=== PATIENT | female | born 1935 | race Caucasian/White ===

== ENCOUNTER → 2016-10-20 | Outpatient (CLI) | payer OTHER, BC ==
[~2016-10-20] MED LIST: AMLO5CAP3 PO; ASPI-232 PO; FRS/40 PO; GLIP-197 PO; INSUINJ4 SQ; LIRA18IN SQ; METF500T5 PO; OMEG1CAP26 PO; SIMV40TA2 PO
[2016-10-20 12:15] LABS: BASO % 0.7 %; BASO ABS # 0.06 K/uL (0-0.2); COMPLETE YES; EOS % 5.9 %; HEMATOCRIT 40.6 % (37-47); IG% 0.4 %; LYMPH % 15.6 %; MEAN CELL VOLUME 90.4 fL (80-100); MEAN CORPUSCULAR HEMOGLOBIN 29.2 pg (25-34); MEAN CORPUSCULAR HGB CONC 32.3 g/dl (32-36); MEAN PLATELET VOLUME 10.1 fL (7.4-10.4); MONO % 7.3 %; NEUT % 70.1 %; PLATELET COUNT 403 K/uL (130-400); RED BLOOD COUNT 4.49 M/uL (4.2-5.4); WHITE BLOOD COUNT 8.35 K/uL (4.8-10.8)
[2016-10-20 12:26] LABS: ESTIMATED AVERAGE GLUCOSE 177 mg/dl; HA1C FLAG Normal (Normal)
[2016-10-20 13:55] LABS: BLOOD UREA NITROGEN 17 mg/dl (7-18); BUN/CREATININE RATIO 24.8 (10-20); CALCIUM 9.1 mg/dl (8.5-10.1); CARBON DIOXIDE 28 mmol/L (21-32); CHLORIDE 105 mmol/L (98-107); CREATININE 0.69 mg/dl (0.60-1.20); GLUCOSE 149 mg/dl (70-99); SODIUM 142 mmol/L (136-145)
[2016-10-20 13:58] LABS: ALKALINE PHOSPHATASE 91 U/L (45-117); ALT/SGPT 14 U/L (12-78); AST/SGOT 10 U/L (15-37); CHOLESTEROL 145 mg/dl (0-200); CHOLESTEROL/HDL RATIO 1.9; HDL CHOLESTEROL 75 mg/dl; LDL CHOLESTEROL CALCULATED 42 mg/dl; TRIGLYCERIDES 138 mg/dl (0-150); VERY LOW DENSITY LIPOPROT CALC 28 mg/dl
== END | disposition home or self-care (01) ==
LOC: C.LAB1850 11:21
PROVIDERS: ATTEND Internal Medicine
DX: E11.9 Type 2 diabetes mellitus without complications (principal); E78.5 Hyperlipidemia, unspecified; D64.9 Anemia, unspecified

== ENCOUNTER → 2017-01-07 | Outpatient (CLI) | payer OTHER, BC ==
--- NOTE | 2017-01-10 12:25 | MAMMOGRAPHY REPORT ---
UNILATERAL RIGHT DIGITAL SCREENING MAMMOGRAM TOMOSYNTHESIS WITH CAD: 01/07/2017 CLINICAL HISTORY: Asymptomatic. Personal history of breast cancer. TECHNIQUE: Breast tomosynthesis in addition to standard 2D mammography was performed. Current study was also evaluated with a Computer Aided Detection (CAD) system. Right CC and MLO 2-D and tomosynt hesis images were obtained. COMPARISON: Comparison is made to exams dated: 01/05/2016 mammogram, 10/16/2014 mammogram, 10/02/2013 m ammogram, and 09/25/2012 mammogram - [facility]. BREAST COMPOSITION: There are scattered areas of fibroglandular density in the right breast. FINDINGS: There are grouped calcifications in the right 6:00 breast posteriorly, which may be incre ased compared compared to prior exams. Recommend spot magnification views for further evaluation. The remainder of the right breast is stable compared to prior exams, without suspicious masses, calc ifications, or areas of architectural distortion noted. Right breast asymmetries are stable, includ ing 2 adjacent asymmetries within the right medial posterior breast which are stable dating back to at least the 2010 and 2012 exams. Other scattered benign-appearing calcifications are stable. Ther e are stable postsurgical changes from reduction mammoplasty. IMPRESSION: ACR BI-RADS CATEGORY 0: INCOMPLETE EVALUATION: NEED ADDITIONAL IMAGING EVALUATION Right 6:00 breast calcifications, for which additional imaging evaluation is recommended. The patie nt will be called to schedule an appointment. Approximately 10% of breast cancers are not detected with mammography. A negative mammographic repor t should not delay biopsy if a clinically suggestive mass is present. Gisele Michel M.D. ah/:01/07/2017 16:48:29 Chief Nurse: Franny CESPEDES(R)(M), [facility] letter sent: Addl Imaging 0 BI-RADS Code: ACR BI-RADS Category 0: Incomplete Evaluation: Need Additional Imaging Evaluation
== END | disposition home or self-care (01) ==
LOC: C.MAMM 11:09
PROVIDERS: ATTEND Internal Medicine
DX: Z12.31 Encounter for screening mammogram for malignant neoplasm of breast (principal); R92.1 Mammographic calcification found on diagnostic imaging of breast; Z90.12 Acquired absence of left breast and nipple

== ENCOUNTER → 2017-01-25 | Outpatient (CLI) | payer OTHER, BC ==
[2017-01-25 12:27] LABS: BASO % 0.7 %; BASO ABS # 0.05 K/uL (0-0.2); COMPLETE YES; EOS % 7.6 %; IG% 0.3 %; LYMPH % 14.1 %; LYMPH ABS # 1.07 K/uL (1.2-3.4); MEAN CELL VOLUME 90.9 fL (80-100); MEAN CORPUSCULAR HEMOGLOBIN 29.1 pg (25-34); MEAN CORPUSCULAR HGB CONC 32.1 g/dl (32-36); MEAN PLATELET VOLUME 10.4 fL (7.4-10.4); MONO % 7.4 %; NEUT % 69.9 %; PLATELET COUNT 367 K/uL (130-400); RED BLOOD COUNT 4.29 M/uL (4.2-5.4); WHITE BLOOD COUNT 7.59 K/uL (4.8-10.8)
[2017-01-25 13:00] LABS: ALT/SGPT 13 U/L (12-78); AST/SGOT 11 U/L (15-37); BLOOD UREA NITROGEN 14 mg/dl (7-18); CALCIUM 8.5 mg/dl (8.5-10.1); CARBON DIOXIDE 32 mmol/L (21-32); CHLORIDE 108 mmol/L (98-107); CREATININE 0.61 mg/dl (0.60-1.20); GLUCOSE 98 mg/dl (70-99); POTASSIUM 3.7 mmol/L (3.5-5.1); SODIUM 145 mmol/L (136-145)
[2017-01-25 13:23] LABS: ALB/GLOB RATIO 0.9 (0.9-2); ALKALINE PHOSPHATASE 82 U/L (45-117); FERRITIN 31.9 ng/ml (8.0-388.0); TOTAL IRON BINDING CAPACITY 280 mcg/dl (250-450)
--- NOTE | 2017-02-01 09:04 | CODING QUERY MEDICAL NECESSITY ---
SUPPORTING DIAGNOSIS NEEDED Quinton MENCHACA, A supporting diagnosis is required for the test/procedure performed on this patient in order for us to be reimbursed by the patient's insurance. Please provide a supporting diagnosis for the following test/procedure listed below next to the test name along with your signature. *If there is no additional diagnosis for this patient that would support the following test/procedure please document that below next to the test/procedure. Test(s)/Procedure(s) that require a supporting diagnosis: * ([id number]) B12 VITAMIN LEVEL DIAGNOSIS: DATE OF SERVICE: 01/25/17 Provider Signature: Date: Thank you Fausto Cho [facility] Information Management Once completed, please kindly fax back to [phone] For questions please call [phone]
== END | disposition home or self-care (01) ==
LOC: C.LAB1850 10:29
PROVIDERS: ATTEND Nurse Practitioner Family
DX: D50.9 Iron deficiency anemia, unspecified (principal)

== ENCOUNTER → 2017-02-03 | Outpatient (CLI) | payer OTHER, BC ==
--- NOTE | 2017-02-03 14:08 | MAMMOGRAPHY REPORT ---
UNILATERAL RIGHT DIGITAL DIAGNOSTIC MAMMOGRAM: 02/03/2017 CLINICAL HISTORY: Callback from screening mammogram for right breast calcifications. TECHNIQUE: Spot magnification right cc and ML views were obtained. COMPARISON: Comparison is made to exams dated: 01/07/2017 mammogram, 01/05/2016 mammogram, 10/16/2014 m ammogram, 10/02/2013 mammogram, 09/25/2012 mammogram - [facility], and 03/30/2010 [facility] mogram. BREAST COMPOSITION: There are scattered areas of fibroglandular density in the right breast. FINDINGS: Spot magnification views of the right breast demonstrate a focal 8 mm group of calcificat ions in the right 6:00 breast posteriorly. Some of the calcifications are round and coarse while ot hers are smaller and more punctate. The calcifications appear increased compared to prior exams inc luding the 2014 exam. Given the heterogeneity in morphology and given the increase, the calcificati ons are indeterminate and stereotactic biopsy is recommended for further evaluation. IMPRESSION: ACR BI-RADS CATEGORY 4: SUSPICIOUS Grouped calcifications in the right 6:00 breast posteriorly are indeterminate and stereotactic biops y is recommended for further evaluation. A phone call was made to the physician's office to confirm faxed results were received. The patient has been verbally notified of the results. She tentatively scheduled the biopsy before leaving the department. Approximately 10% of breast cancers are not detected with mammography. A negative mammographic repor t should not delay biopsy if a clinically suggestive mass is present. Gisele Michel M.D. ah/:02/03/2017 11:48:46 Processing Inspector: Laury CESPEDES(R)(M), [facility] letter sent: Abnormal 4/5 BI-RADS Code: ACR BI-RADS Category 4: Suspicious
== END | disposition home or self-care (01) ==
LOC: C.MAMM 11:19
PROVIDERS: ATTEND Internal Medicine
DX: R92.1 Mammographic calcification found on diagnostic imaging of breast (principal)

== ENCOUNTER → 2017-02-09 | Outpatient (CLI) | payer OTHER, BC ==
--- NOTE | 2017-02-09 13:37 | Discharge Instructions ---
Discharge Instructions Procedure Procedure Date: February 09, 2017. Reason for visit: Rt Calcifications, Lt Mastectomy. Discharge Discharge Date: February 09, 2017. Discharge Diagnosis: post right breast stereotactic guided biopsy Instructions Activity Recommendations: Additional Limitations (see below) Return to School/Work: no limitations Recommended Home Diet: No Limitations Provider Instructions: ACTIVITY RECOMMENDATIONS: * No lifting, pushing, pulling or exercising the affected side for three days. RETURN TO SCHOOL/WORK: * You may return to work/school after the procedure, but do not perform any strenuous activities for 24 to 48 hours. MEDICATIONS: * Tylenol (two 325 mg) every four to six hours if needed for mild pain (if not allergic to Tylenol). DIET: * Resume previous diet. SPECIAL CARE INSTRUCTIONS: * Keep biopsy site dry for 24 hours. May shower after 24 hours, but do not soak (bathe) incision. * May remove Tegaderm (plastic patch) tomorrow AFTER showering. * Leave the steri-strips on for one week. Allow the steri-strips to fall off by themselves. If not off after one week, you may remove them. You may place a Bandaid crosswise over the strips, if desired. * Apply ice 10 minutes on and 10 minutes off as needed. * Wear a bra at bedtime to sleep more comfortably for 2-3 days. * Your referring physician should have the results after approximately 5 to 7 business days. * Call for unusual bleeding, fever, drainage, etc or if you have any questions call [phone] during normal business hours or after hours call Dr Harrell, . FOLLOW UP VISIT: Follow-up with Referring Physician as scheduled. Allergies Coded Allergies: Aspartame (Verified Allergy, Severe, immediate diarrhea, 05/05/15) Codeine (Verified Allergy, Severe, hallucinations, 05/05/15) Pratik Ndiaye Recommendations: Call your doctor if: * Temperature above 101 degrees * Pain not relieved by pain medicine ordered * There is increased drainage or redness from any incision * You have any unanswered questions or concerns. Your Doctors Instructions noted above were prepared by provider Laura Harrell. Patient Signature Section: Patient Instructions Signature Page Sona Veras Patient (or Guardian) Signature/Date: I have read and understand the instructions given to me by my caregivers. Caregiver/RN/Doctor Signature/Date: The above-named patient and/or guardian has received patient instructions on this date. + Original Patient Signature Page (only) stays with chart. Please make copy for patient.
--- NOTE | 2017-02-09 14:11 | MAMMOGRAPHY REPORT ---
UNILATERAL RIGHT DIGITAL DIAGNOSTIC MAMMOGRAM: 02/09/2017 CLINICAL HISTORY: Status post right breast stereotactic guided biopsy of a cluster of heterogeneous microcalcifications in the posterior 6:00 axis. Please refer to the report from right breast stereotactic guided biopsy performed at the same time f or full detail. IMPRESSION: POST PROCEDURE IMAGING FOR MARKER PLACEMENT Please refer to the report from right breast stereotactic guided biopsy performed at the same time f or full detail. Approximately 10% of breast cancers are not detected with mammography. A negative mammographic repor t should not delay biopsy if a clinically suggestive mass is present. Laura Harrell M.D. ay/:02/09/2017 13:38:56 Chief School Finance Officer: Edwardo CESPEDES(Brina)(M), [facility] BI-RADS Code: Post Procedure Imaging For Marker Placement
--- NOTE | 2017-02-09 15:47 | MAMMOGRAPHY REPORT ---
STEREOTACTIC GUIDED BIOPSY RIGHT BREAST: 02/09/2017 CLINICAL HISTORY: Clustered coarse heterogeneous microcalcifications and associated asymmetry in the 6:00 right breast posteriorly. Patient presents for stereotactic biopsy. Personal history of shanta te left breast cancer status post mastectomy. COMPARISON: Comparison is made to exams dated: 02/03/2017 mammogram, 01/07/2017 mammogram, 01/05/2016 mammogram, and 10/16/2014 mammogram - [facility]. PATIENT CONSENT: After explaining the risks, benefits and alternatives of the procedure to the patie nt, informed consent was obtained both verbally and in writing. Specific risks include: Bleeding, i nfection, puncture of adjacent structure, pain, nontarget biopsy, sampling error, metal allergy and medication reaction. PROCEDURE DESCRIPTION: A time-out was performed and the right breast was confirmed as the site of bi opsy. The patient was placed prone on the stereotactic biopsy table and the breast was placed in CC from below compression. A aluminum fabrication supervisor image was obtained that demonstrated the clustered microcalcificatio ns in question. They are amenable to sterotactic biopsy. Then +15 and -15 stereo pair images were obtained. The calcifications were targeted utilizing the coordinates obtained by the computer. The skin was prepped with Betadine. 1% Lidocaine with and without epinipherine was administered as loca l anesthesia. A small skin incision was made. Through the incision, the needle was inserted to the depth determined by the computer. 7 samples were obtained using a [employer]iva 9-gauge vacuum-assiste d biopsy device. The specimen radiograph demonstrated several abrasives sales representative microcalcifications, th erefore, a metallic marker was placed at the biopsy site. There was no immediate complication. Hemos tasis was achieved after several minutes of manual compression. The samples were sent to pathology in two appropriately labeled containers, "with calcifications" and "without calcifications". All of the samples were obtained from the same single biopsy site. Postprocedure CC and ML views of the right breast were obtained. There is a new metallic biopsy ma rker and minimal wispy hematoma at the site of the biopsy in the 6:00 posterior right breast. IMPRESSION: STEREOTACTIC GUIDED BIOPSY Status post stereotactic guided biopsy of an indeterminate clustered micro-calcifications in the 6:0 0 posterior breast, with biopsy marker placed at the site. The patient will receive notification of the biopsy results from her referring physician. Laura lawson/:02/09/2017 15:36:16 Abrasive Coating Machine Operator: Edwardo WAGNER)(M), [facility]
== END | disposition home or self-care (01) ==
LOC: C.MAMM 12:34
PROVIDERS: ATTEND Internal Medicine
DX: R92.0 Mammographic microcalcification found on diagnostic imaging of breast (principal)

== ENCOUNTER → 2017-05-02 | Outpatient (CLI) | payer OTHER, BC ==
[2017-05-02 11:15] LABS: ESTIMATED AVERAGE GLUCOSE 154 mg/dl; HA1C FLAG Normal (Normal)
== END | disposition home or self-care (01) ==
LOC: C.LAB1850 09:35
PROVIDERS: ATTEND Physician Assistant
DX: E11.9 Type 2 diabetes mellitus without complications (principal)

== ENCOUNTER → 2017-05-26 | Outpatient (CLI) | payer OTHER, BC ==
[2017-05-26 12:18] LABS: BASO % 0.4 %; BASO ABS # 0.03 K/uL (0-0.2); COMPLETE YES; EOS % 8.3 %; HEMATOCRIT 38.8 % (37-47); IG% 0.4 %; LYMPH % 17.5 %; LYMPH ABS # 1.31 K/uL (1.2-3.4); MEAN CORPUSCULAR HEMOGLOBIN 28.5 pg (25-34); MEAN CORPUSCULAR HGB CONC 31.7 g/dl (32-36); MEAN PLATELET VOLUME 10.3 fL (7.4-10.4); MONO % 7.4 %; PLATELET COUNT 401 K/uL (130-400); RED BLOOD COUNT 4.31 M/uL (4.2-5.4); WHITE BLOOD COUNT 7.47 K/uL (4.8-10.8)
[2017-05-26 12:36] LABS: ALT/SGPT 14 U/L (12-78); AST/SGOT 12 U/L (15-37); BLOOD UREA NITROGEN 21 mg/dl (7-18); BUN/CREATININE RATIO 31.5 (10-20); CALCIUM 8.9 mg/dl (8.5-10.1); CARBON DIOXIDE 30 mmol/L (21-32); CHLORIDE 104 mmol/L (98-107); CREATININE 0.67 mg/dl (0.60-1.20); GLUCOSE 117 mg/dl (70-99); POTASSIUM 3.8 mmol/L (3.5-5.1); SODIUM 139 mmol/L (136-145)
[2017-05-26 12:39] LABS: ALB/GLOB RATIO 0.9 (0.9-2); ALKALINE PHOSPHATASE 95 U/L (45-117); FERRITIN 19.2 ng/ml (8.0-388.0); TOTAL IRON BINDING CAPACITY 311 mcg/dl (250-450)
== END | disposition home or self-care (01) ==
LOC: C.LAB1850 10:51
PROVIDERS: ATTEND Nurse Practitioner Family
DX: D50.9 Iron deficiency anemia, unspecified (principal)

== ENCOUNTER → 2017-08-16 | Outpatient (CLI) | payer OTHER, BC ==
[2017-08-16 13:32] LABS: BASO % 0.7 %; BASO ABS # 0.06 K/uL (0-0.2); COMPLETE YES; HEMATOCRIT 40.8 % (37-47); IG% 0.2 %; LYMPH % 15.3 %; LYMPH ABS # 1.27 K/uL (1.2-3.4); MEAN CELL VOLUME 90.9 fL (80-100); MEAN CORPUSCULAR HGB CONC 31.9 g/dl (32-36); NEUT % 69.8 %; PLATELET COUNT 355 K/uL (130-400); RED BLOOD COUNT 4.49 M/uL (4.2-5.4); WHITE BLOOD COUNT 8.29 K/uL (4.8-10.8)
[2017-08-16 13:44] LABS: ESTIMATED AVERAGE GLUCOSE 151 mg/dl; HA1C FLAG Normal (Normal)
[2017-08-16 13:46] LABS: ALT/SGPT 15 U/L (12-78); BLOOD UREA NITROGEN 21 mg/dl (7-18); BUN/CREATININE RATIO 28.7 (10-20); CALCIUM 8.7 mg/dl (8.5-10.1); CARBON DIOXIDE 28 mmol/L (21-32); CHLORIDE 105 mmol/L (98-107); CREATININE 0.73 mg/dl (0.60-1.20); GLUCOSE 85 mg/dl (70-99); POTASSIUM 3.5 mmol/L (3.5-5.1); SODIUM 140 mmol/L (136-145)
[2017-08-16 13:55] LABS: ALB/GLOB RATIO 0.9 (0.9-2); ALKALINE PHOSPHATASE 84 U/L (45-117); AST/SGOT 13 U/L (15-37); FERRITIN 128.9 ng/ml (8.0-388.0); TOTAL IRON BINDING CAPACITY 303 mcg/dl (250-450)
== END | disposition home or self-care (01) ==
LOC: C.LAB1850 12:11
PROVIDERS: ATTEND Nurse Practitioner Family
DX: E11.9 Type 2 diabetes mellitus without complications (principal); D50.9 Iron deficiency anemia, unspecified

== ENCOUNTER → 2017-12-13 | Outpatient (CLI) | payer OTHER, BC ==
[2017-12-13 12:09] LABS: BASO % 0.5 %; BASO ABS # 0.05 K/uL (0-0.2); EOS % 6.3 %; EOS ABS # 0.58 K/uL (0-0.5); HEMATOCRIT 39.4 % (37-47); HEMOGLOBIN 12.5 g/dL (12.0-16.0); IG# 0.04 K/uL (0.00-0.02); LYMPH % 11.6 %; LYMPH ABS # 1.07 K/uL (1.2-3.4); MEAN CELL VOLUME 89.5 fL (80-100); MEAN CORPUSCULAR HEMOGLOBIN 28.4 pg (25-34); MEAN CORPUSCULAR HGB CONC 31.7 g/dl (32-36); MONO % 9.6 %; MONO ABS # 0.88 K/uL (0.11-0.59); NEUT % 71.6 %; NEUT ABS # 6.57 K/uL (1.4-6.5); PLATELET COUNT 397 K/uL (130-400); RED CELL DISTRIBUTION WIDTH CV 13.6 % (11.5-14.5); RED CELL DISTRIBUTION WIDTH SD 44.9 fL (36.4-46.3); WHITE BLOOD COUNT 9.19 K/uL (4.8-10.8)
[2017-12-13 12:39] LABS: ALBUMIN 2.8 gm/dl (3.4-5.0); ALT/SGPT 14 U/L (12-78); AST/SGOT 12 U/L (15-37); BLOOD UREA NITROGEN 17 mg/dl (7-18); CALCIUM 8.3 mg/dl (8.5-10.1); CARBON DIOXIDE 29 mmol/L (21-32); CREATININE 0.72 mg/dl (0.60-1.20); GLUCOSE 100 mg/dl (70-99); POTASSIUM 3.4 mmol/L (3.5-5.1); SODIUM 138 mmol/L (136-145)
[2017-12-13 12:44] LABS: ALKALINE PHOSPHATASE 108 U/L (45-117); TOTAL PROTEIN 6.2 gm/dl (6.4-8.2)
== END | disposition home or self-care (01) ==
LOC: C.LAB1850 10:47
PROVIDERS: ATTEND Internal Medicine Hematology & Oncology
DX: D50.9 Iron deficiency anemia, unspecified (principal)

== ENCOUNTER → 2018-01-10 | Outpatient (CLI) | payer OTHER, BC ==
--- NOTE | 2018-01-10 15:22 | MAMMOGRAPHY REPORT ---
UNILATERAL RIGHT DIGITAL SCREENING MAMMOGRAM TOMOSYNTHESIS WITH CAD: 01/10/2018 CLINICAL HISTORY: Asymptomatic. Personal history of breast cancer. TECHNIQUE: Right breast tomosynthesis in addition to standard 2D mammography was performed. An addit ional exaggerated medial right CC 2D and tomosynthesis view was obtained to include more medial and p osterior tissue. Current study was also evaluated with a Computer Aided Detection (CAD) system. COMPARISON: Comparison is made to exams dated: 02/09/2017 mammogram, 02/09/2017 stereotactic biopsy, mammogram, 01/07/2017 mammogram, 01/05/2016 mammogram, and 10/16/2014 mammogram - [facility]. BREAST COMPOSITION: There are scattered areas of fibroglandular density in the right breast. FINDINGS: There is a stable metallic biopsy marker clip in the 6:00 posterior right breast, denoting the site of prior benign stereotactic biopsy which yielded a fibroadenoma. There are a few residual grouped microcalcifications at the biopsy site and stable nodular asymmetry slightly anterior to the biopsy clip. No new suspicious mass, architectural distortion or cluster of microcalcifications is s een. IMPRESSION: ACR BI-RADS CATEGORY 1: NEGATIVE There is no mammographic evidence of malignancy. A 1 year screening mammogram is recommended. The pa tient will receive written notification of the results. Approximately 10% of breast cancers are not detected with mammography. A negative mammographic report should not delay biopsy if a clinically suggestive mass is present. Laura Harrell M.D. ay/:01/10/2018 14:57:55 Manager Shell: Fernanda CESPEDES(Brina)([place]), [facility] letter sent: Normal 1/2 BI-RADS Code: ACR BI-RADS Category 1: Negative
== END | disposition home or self-care (01) ==
LOC: C.MAMM 11:09
PROVIDERS: ATTEND Internal Medicine
DX: Z12.31 Encounter for screening mammogram for malignant neoplasm of breast (principal); Z90.12 Acquired absence of left breast and nipple

== ENCOUNTER → 2018-01-20 | Outpatient (CLI) | payer OTHER, BC ==
[2018-01-20 13:16] LABS: HEMOGLOBIN A1C 6.9 % (4.5-5.6)
[2018-01-20 13:39] LABS: ALBUMIN 3.1 gm/dl (3.4-5.0); ALT/SGPT 13 U/L (12-78); AST/SGOT 13 U/L (15-37); BLOOD UREA NITROGEN 19 mg/dl (7-18); CALCIUM 8.6 mg/dl (8.5-10.1); CARBON DIOXIDE 31 mmol/L (21-32); CHOLESTEROL 133 mg/dl (0-200); CREATININE 0.76 mg/dl (0.60-1.20); GLUCOSE 116 mg/dl (70-99); POTASSIUM 3.8 mmol/L (3.5-5.1); SODIUM 141 mmol/L (136-145)
[2018-01-20 13:42] LABS: ALKALINE PHOSPHATASE 91 U/L (45-117); LDL CHOLESTEROL CALCULATED 42 mg/dl; TOTAL PROTEIN 6.3 gm/dl (6.4-8.2)
== END | disposition home or self-care (01) ==
LOC: C.LAB1850 10:45
PROVIDERS: ATTEND Physician Assistant
DX: E11.9 Type 2 diabetes mellitus without complications (principal)

== ENCOUNTER → 2018-01-23 | Outpatient (CLI) | payer OTHER, BC ==
--- NOTE | 2018-01-23 09:31 | DIAGNOSTIC IMAGING REPORT ---
Thyroid ultrasonography CLINICAL HISTORY: E04.2 multinodular thyroid gland COMPARISON STUDY: June 2013 FINDINGS: The right lobe measures 37 x 21 x 17 mm. There is a slightly hypoechoic circumscribed mid pole nodule measuring 7 x 7 x 5 mm. The left lobe measured 38 x 15 x 16 mm. There is a 4 mm circumscribed hypoechoic mid pole nodule. IMPRESSION: Bilateral thyroid nodules essentially unchanged from the prior 2012 examination Electronically signed by: Byron Marsh M.D. 01/23/2018 9:30 AM Dictated Date/Time: 01/23/2018 9:28 AM
== END | disposition home or self-care (01) ==
LOC: C.ULTR 08:59
PROVIDERS: ATTEND Physician Assistant
DX: E04.2 Nontoxic multinodular goiter (principal)

== ENCOUNTER → 2018-04-20 | Outpatient (CLI) | payer OTHER, BC | END | disposition home or self-care (01) | LOC: C.MAMM 10:54 | PROVIDERS: ATTEND Physician Assistant | DX: M81.0 Age-related osteoporosis without current pathological fracture (principal) ==

== ENCOUNTER → 2018-04-26 | Outpatient (CLI) | payer OTHER, BC ==
[2018-04-26 14:49] LABS: BASO % 0.9 %; BASO ABS # 0.08 K/uL (0-0.2); EOS % 5.6 %; HEMATOCRIT 42.8 % (37-47); HEMOGLOBIN 13.6 g/dL (12.0-16.0); IG# 0.02 K/uL (0.00-0.02); LYMPH % 20.2 %; LYMPH ABS # 1.79 K/uL (1.2-3.4); MEAN CELL VOLUME 88.8 fL (80-100); MEAN CORPUSCULAR HEMOGLOBIN 28.2 pg (25-34); MEAN CORPUSCULAR HGB CONC 31.8 g/dl (32-36); MEAN PLATELET VOLUME 10.7 fL (7.4-10.4); MONO % 6.8 %; NEUT % 66.3 %; NEUT ABS # 5.89 K/uL (1.4-6.5); PLATELET COUNT 438 K/uL (130-400); RED CELL DISTRIBUTION WIDTH SD 45.8 fL (36.4-46.3); WHITE BLOOD COUNT 8.88 K/uL (4.8-10.8)
[2018-04-26 15:09] LABS: ALBUMIN 2.8 gm/dl (3.4-5.0); ALKALINE PHOSPHATASE 121 U/L (45-117); ALT/SGPT 15 U/L (12-78); AST/SGOT 15 U/L (15-37); BLOOD UREA NITROGEN 15 mg/dl (7-18); CALCIUM 8.4 mg/dl (8.5-10.1); CARBON DIOXIDE 29 mmol/L (21-32); CHOLESTEROL 168 mg/dl (0-200); CREATININE 0.71 mg/dl (0.60-1.20); GLUCOSE 83 mg/dl (70-99); LDL CHOLESTEROL CALCULATED 51 mg/dl; POTASSIUM 3.6 mmol/L (3.5-5.1); SODIUM 138 mmol/L (136-145); TOTAL PROTEIN 6.5 gm/dl (6.4-8.2)
[2018-04-26 15:31] LABS: HEMOGLOBIN A1C 7.3 % (4.5-5.6)
== END | disposition home or self-care (01) ==
LOC: C.LAB1850 12:46
PROVIDERS: ATTEND Nurse Practitioner Family
DX: D50.9 Iron deficiency anemia, unspecified (principal); K90.0 Celiac disease; E11.9 Type 2 diabetes mellitus without complications